=== PATIENT | male | born 1965 | race Caucasian/White ===

== ENCOUNTER → 2017-05-16 | Outpatient (CLI) | payer OTHER | LOC: ULTRA 12:15 | DX: R10.9 Unspecified abdominal pain (principal) ==

== ENCOUNTER → 2021-08-11 | Outpatient (CLI) | payer OTHER | LOC: ULTRA 08:25 | PROVIDERS: ATTEND Family Medicine | DX: N40.0 Benign prostatic hyperplasia without lower urinary tract symptoms (principal); R31.9 Hematuria, unspecified; K76.0 Fatty (change of) liver, not elsewhere classified ==